=== PATIENT | male | born 1985 | race Caucasian/White ===

== ENCOUNTER 2018-01-16 18:06 | Emergency (ER) | payer OTHER, MEDICAID ==
[~2018-01-16] VITALS: Ht 152.4 cm; Wt 80.3 kg
[2018-01-16 18:10] VITALS: Ht 152.4 cm; Wt 80.3 kg
[2018-01-16 18:40] LABS: BASOPHIL % 0.3 % (0-2); PLATELET COUNT 304 x10^3mcL (130-400)
[2018-01-16 18:49] LABS: CALCIUM 9.9 mg/dL (8.5-10.1); CARBON DIOXIDE 32.6 mmol/L (21-32); CHLORIDE SERUM 100 mmol/L (98-107); CREATININE SERUM 0.9 mg/dL (0.7-1.3); GFR1 > 60 mL/min; GLUCOSE SERUM 122 mg/dL (74-106); POTASSIUM SERUM 3.7 mmol/L (3.5-5.1); SODIUM SERUM 139 mmol/L (136-145)
[2018-01-16 18:55] LABS: ALBUMIN 3.9 g/dL (3.4-5.0); ALKALINE PHOSPHATASE 147 U/L (46-116); ALT/SGPT 33 U/L (16-63); AST/SGOT 27 U/L (15-37); BILIRUBIN TOTAL 0.46 mg/dL (0.20-1.00); LIPASE 189 IU/L (73-393); TOTAL PROTEIN, SERUM 8.1 g/dL (6.4-8.2); TRIGLYCERIDES 88 mg/dL (<150)
[2018-01-16 18:58] LABS: CHOLESTEROL 217 mg/dL (<200); CHOLESTEROL/HDL RATIO 2.8; HDL CHOLESTEROL 78 mg/dL (40-60)
[2018-01-16 19:19] LABS: T3 TOTAL 0.95 ng/mL
[2018-01-16 19:23] LABS: FREE T4 0.93 ng/dL (0.76-1.46); FREE THYROXINE INDEX 2.3 ug/dL (1.4-4.5); T4(THYROXINE) 6.4 ug/dL (4.7-13.3)
[2018-01-16 19:28] VITALS: BP 120/88
== END 2018-01-16 19:30 | disposition home or self-care (01) ==
LOC: ED 18:06
PROVIDERS: Specialist
DX: J20.9 Acute bronchitis, unspecified (principal)
CPT/HCPCS: 36415; 83880; 84439; Q0092